=== PATIENT | female | born 1990 | race Caucasian/White ===

== ENCOUNTER → 2021-04-05 09:10 | Outpatient (BNVA) | payer BC, SELFPAY | PROVIDERS: Visit Provider Obstetrics & Gynecology | DX: Z34.01 Encounter for supervision of normal first pregnancy, first trimester (principal) | CPT/HCPCS: 80307; 84315; 85027; 86592; 86762; 86803; 86850; 86900; 87086; 87340; 87491; 87591 ==

== ENCOUNTER → 2021-05-20 09:01 | Outpatient (BNVA) | payer BC, SELFPAY | PROVIDERS: Visit Provider Obstetrics & Gynecology | DX: Z36.89 Encounter for other specified antenatal screening (principal) | CPT/HCPCS: 76805 ==

== ENCOUNTER → 2021-06-20 08:00 | Outpatient (BNVA) | payer BC, SELFPAY | PROVIDERS: Visit Provider Obstetrics & Gynecology | DX: Z34.01 Encounter for supervision of normal first pregnancy, first trimester (principal) | CPT/HCPCS: 82950; 84315 ==

== ENCOUNTER → 2021-07-29 13:13 | Outpatient (BNVA) | payer BC, SELFPAY | PROVIDERS: Visit Provider Obstetrics & Gynecology | DX: Z34.80 Encounter for supervision of other normal pregnancy, unspecified trimester (principal) | CPT/HCPCS: 84315; 85027 ==

== ENCOUNTER → 2021-09-09 13:48 | Outpatient (BNVA) | payer BC, SELFPAY | PROVIDERS: Visit Provider Obstetrics & Gynecology | DX: Z34.01 Encounter for supervision of normal first pregnancy, first trimester (principal) | CPT/HCPCS: 84315; 87081 ==

== ENCOUNTER 2021-10-05 01:50 | Inpatient (IN) | payer BC, SELFPAY ==
[2021-10-04 23:28] VITALS: BP 131/77; PULSE 103
[2021-10-04 23:32] VITALS: RESP 16
[2021-10-04 23:35] VITALS: BMI 36.7
[2021-10-05] VITALS (68 sets, daily range): BP systolic 105–167; BP diastolic 56–93; PULSE 66–113; RESP 16–18; TEMP 37.1–38.1; O2SAT 76–100
[2021-10-05] MEDS: dextrose 5%-lactated ringers 1,000 ML 999 ML IV (02:13)
[2021-10-05 02:15] LABS: Basophils % 0.3 %; Eosinophils % 0.2 %; Hemoglobin 13.4 g/dL (11.5-15.3); Lymphocytes # 2.5 10^3/uL (0.8-4.8); Lymphocytes % 18.8 %; Mean Corpuscular HGB Conc 34.4 g/dL (30.0-36.0); Mean Corpuscular Hemoglobin 29.5 pg (28.0-34.0); Mean Corpuscular Volume 85.7 fl (81-99); Mean Platelet Volume 9.7 fL (7.4-10.4); Monocytes # 0.6 10^3/uL (0.2-0.9); Monocytes % 4.8 %; Neutrophils # 9.84 10^3/uL (1.8-7.7); Neutrophils % 75.5 %; Nucleated Red Blood Cells % 0 %; Platelet Count 256 10^3/cmm (130-400); Red Blood Count 4.55 10^6/uL (4.1-5.3); Red Cell Distribution Width 13.7 % (12.1-15.1)
--- NOTE | 2021-10-05 02:27 | PM.OPHPUD ---
Labor & Delivery H&P Update Date of Procedure: October 05, 2021 Date H&P Performed: 09/30/21 H&P update information: I have reviewed H&P completed within last 30 days, I have examined patient prior to procedure and Changes to prior documentation as noted here Changes to previous documentation: The patient had cervical change to /-3. she is 39 6/7 weeks. She will be admitted for labor Admission Diagnosis:
[2021-10-05] MEDS: fentaNYL 50 mcg/mL INJ 2mL IVP ×2 (04:32→06:07)
[2021-10-05] MEDS: lactated ringers 1,000 ML 999 ML IV ×2 (07:40→08:46)
[2021-10-05] MEDS: ondansetron 2 mg/ML SDV 2 mL 4 MG IVP (08:43)
--- NOTE | 2021-10-05 08:45 | ANES.PREANE2 ---
Pre-Anesthetic Assessment Height/Weight: Height 1.57 m Weight 91.172 kg Temp Pulse Resp BP Pulse Ox 99.7 F H 111 H 18 135/77 98 10/05/21 08:38 10/05/21 09:07 10/05/21 06:07 10/05/21 09:07 10/05/21 09:05 Preop Diagnosis: IUP labor epidural Familial anesthetic complications: none Was Beta Estela taken within 24 hours: N/A Was Clonidine taken within 24 hours: N/A Social No alcohol and No tobacco Exam alert and oriented x 3 Airway Submandibular: within normal limits Cervical ROM: within normal limits Mallampati: Class II Dentition: full History/ROS No significant history except as noted Anesthetic Plan ASA status: 2 Anesthesia: Anesthesia Evaluation and Regional (specify below) (epidural) Risk of > 500 ml blood loss (7ml/kg in children): No Medications/Allergies Home Medications Medication Instructions Recorded Confirmed Last Taken Type fluoxetine 10 mg capsule (Prozac) 10 mg PO DAILY 03/22/21 10/04/21 10/04/21 08:30 History prenat.vits,amanda,[id number] 1 tab PO DAILY 03/22/21 10/04/21 10/04/21 08:30 History Allergies Allergy/AdvReac Type Severity Reaction Status Date / Time No Known Allergies Allergy Verified 10/04/21 23:34 Current Medications Generic Name Dose Route Start Last Admin Trade Name Freq PRN Reason Stop Dose Admin Fentanyl 25 - 100 mcg 10/05/21 01:49 10/05/21 06:07 Fentanyl 50 Mcg/Ml Inj 2ml IVP 50 mcg Q1H PRN Administration SEVERE PAIN Dextrose/Lactated Ringer's 1,000 mls @ 125 mls/hr 10/05/21 02:00 10/05/21 04:35 Dextrose 5%-Lactated Ringers IV 125 mls/hr .Q8H MADI Infusion Lactated Ringer's 1,000 mls @ 999 mls/hr 10/05/21 01:49 10/05/21 08:46 Lactated Ringers IV 999 mls/hr .Q1H1M PRN Administration Per L&D Rescitation Protocol Ropivacaine 200 mg in 100 mls @ 13 mls/hr 10/05/21 07:45 10/05/21 09:06 Naropin Premix EPIDURAL 13 mls/hr .Q7H42M MADI Administration Lactated Ringer's 1,000 mls @ 999 mls/hr 10/05/21 07:32 10/05/21 07:40 Lactated Ringers IV 999 mls/hr .Q1H1M PRN Administration See label comments Ondansetron HCl 4 mg 10/05/21 01:49 10/05/21 08:43 Ondansetron 2 Mg/Ml Sdv 2 Ml IVP 4 mg Q4H PRN Administration NAUSEA AND VOMITING PFSH Anesthesia Medical History Depression started prozac 10mg July 2020. Feels managed by PCP. No pertinent past medical history neghx: htn,dm,thyroid,dvt/pe PCP: Donna Tong Surgical History History of tonsillectomy and adenoidectomy (~2013) Hx of cholecystectomy (~2010) Family History Family/Other Breast cancer Maternal cousin--dx age 30's Diabetes Maternal Aunt Cervical cancer Maternal Cousin-- dx age 35-40 Grandfather Heart disease Maternal Sister Thyroid disease Father Thyroid disease Denies family history of Colon cancer Ovarian cancer Hypercholesteremia Hypertension Uterine cancer Stroke Female Reproductive History : 1 Data Anesthesia : 10/05/21 01:58 Short CBC 10/05/21 Range/Units 01:58 WBC 13.0 H (4.0-10.0) 10^3/uL Hgb 13.4 (11.5-15.3) g/dL Hct 39.0 (37.0-47.0) % MCV 85.7 (81-99) fl Plt Count 256 (130-400) 10^3/cmm Neut % (Auto) 75.5 % Neut # (Auto) 9.84 H (1.8-7.7) 10^3/uL Cardiac Studies: No Data to Display
--- NOTE | 2021-10-05 09:08 | ANES.PROC ---
Anesthesia Procedures Procedure/Date: 10/05/21 epidural Epidural: Time Out Performed: Yes Consents Signed: Procedure Consent Consent: from patient, risks and benefits reviewed and patient agrees to proceed Lumbar Level: L3-L4 Epidural position: sitting Epidural procedure: sterile prep of area, 1% lidocaine to numb the area, 18 g needle, negative for paresthesia passed, test dose given, 1.5% xylocaine 1:200k epi, placed PCEA, no systemic response, sterile dressing applied, L.U.D. no apparent complications and 0.2% Ropiavacaine @ mls/hr (13) Additional Comments: BROOKS at 7, taped at 13 at skin
[2021-10-05] MEDS: oxytocin 30 UNIT/500 ML BAG 600 UNIT IV (10:11)
--- NOTE | 2021-10-05 11:39 | PM.DELIVERY ---
Delivery Note: Date of delivery: October 05, 2021 Pre-delivery diagnoses: iup @ 39w6d, active labor Post-delivery diagnoses: same-delivered Procedure: Delivering Physician: Han Estimated blood loss (mL): 5 Findings: term male in LATRELL presentation Pre-Delivery Course: The patient was admitted from triage for active labor. she had complete cervical dilation and began pushing Delivery: The patient had complete cervical dilation and began to push. The head delivered in the LATRELL position over an intact perineum under epidural anesthesia. The nose and mouth were bulb suctioned. The shoulders and body delivered atraumatically. The baby was placed onto the mother's abdomen. The cord was clamped and cut. Cord blood was obtained. The placenta delivered spontaneously. It was inspected and found to be intact. Inspection of the perineum revealed there was no laceration and no repair was required.. Estimated blood loss 5 mL. Apgars on baby were 7 at 1 minute and 9 at 5 minutes. Weight of baby is 5 pounds 15 ounces. Mother and baby were stable post delivery. 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
[2021-10-05] MEDS: benzocaine-menthol 78 gm Canister 1 SPRAY TOPICAL (13:08)
[2021-10-05] MEDS: lanolin oint 7 gm 1 APPLIC TOPICAL (13:08)
[2021-10-05] MEDS: ibuprofen 800 mg tablet PO ×2 (16:23→23:18)
[2021-10-05 23:33] LABS: Hemoglobin 11.6 g/dL (11.5-15.3); Mean Corpuscular HGB Conc 34.1 g/dL (30.0-36.0); Mean Corpuscular Hemoglobin 29.1 pg (28.0-34.0); Mean Corpuscular Volume 85.4 fl (81-99); Mean Platelet Volume 9.7 fL (7.4-10.4); Platelet Count 217 10^3/cmm (130-400); Red Blood Count 3.98 10^6/uL (4.1-5.3); Red Cell Distribution Width 13.7 % (12.1-15.1)
[2021-10-06] VITALS (8 sets, daily range): BP systolic 124–133; BP diastolic 64–78; PULSE 82–90; RESP 16–18; TEMP 35.4–37.2; O2SAT 99
[2021-10-06] MEDS: ibuprofen 800 mg tablet PO ×2 (09:18→15:37)
[2021-10-06] MEDS: docusate sodium 100 mg Capsule PO (09:18)
[2021-10-06] MEDS: prenatal vitamin Capsule 1 CAP PO (09:18)
--- NOTE | 2021-10-06 09:48 | P.DS_ITS ---
Discharge Providers IP ATTORNEY Date of Admission: 10/05/21 01:50 Date of Discharge: 10/06/21 Attending Provider at Admission: Supriya Short MD Attending Provider at Discharge: Alex Yoo MD Primary IP ATTORNEY: Alex Yoo MD Reason for Visit Reason for Visit: CONTRACTIONS Brief History: Ms. Tripathi is a 30 year old G1 established patient with LMP of 12/30/2020, CASE 10/06/2021 with an estimated gestational age at 39 weeks +6 days. Hospital Course Hospital Course 30Y/o female G1 P 0 with IUP at 39+6 weeks came to L&D in active labor. She had an uneventful care. She had an adequate progression of labor to a spontaneous vaginal delivery of viable term male infant 7/9 with weight 2685 gms. Her recovery was uneventful. Information Peripartum Data: Infant Delivery Method: Vaginal Physical Exam Narrative: GA; alert and oriented x 3 HEENT: normal Breasts: engorged Nipples - skin intact Lungs; clear to auscultation Heart: regular rhythm, no murmurs. Abd: Appropriately tender. BS+. Uterine fundus below umbilicus. No Fundal Tenderness. Perineum: normal lochia. Extremities: no edema, no cyanosis, no tenderness. Urinary Catheter Management: Bernal: Cath Placed During This Visit: yes, but has since been removed by the nurse Reason for Continuing Indwelling Catheter: Decision to DC Catheter Urinary Catheter Date of Insertion: 10/05/21 Urinary Catheter Time of Insertion: 09:10 Date Urinary Catheter Removed: 10/05/21 Time Urinary Catheter Discontinued: 09:50 History History History 1 Term Miscarriages/Ectopic Living Children Discharge Data Studies Completed and Pending Laboratory Results WBC 15.0 10^3/uL (4.0-10.0) H 10/05/21 23:23 RBC 3.98 10^6/uL (4.1-5.3) L 10/05/21 23:23 Hgb 11.6 g/dL (11.5-15.3) 10/05/21 23:23 Hct 34.0 % (37.0-47.0) L 10/05/21 23:23 MCV 85.4 fl (81-99) 10/05/21 23:23 MCH 29.1 pg (28.0-34.0) 10/05/21 23:23 MCHC 34.1 g/dL (30.0-36.0) 10/05/21 23:23 RDW 13.7 % (12.1-15.1) 10/05/21 23:23 Plt Count 217 10^3/cmm (130-400) 10/05/21 23:23 MPV 9.7 fL (7.4-10.4) 10/05/21 23:23 Neut % (Auto) 75.5 % 10/05/21 01:58 Lymph % (Auto) 18.8 % 10/05/21 01:58 [place] % (Auto) 4.8 % 10/05/21 01:58 Eos % (Auto) 0.2 % 10/05/21 01:58 Baso % (Auto) 0.3 % 10/05/21 01:58 Neut # (Auto) 9.84 10^3/uL (1.8-7.7) H 10/05/21 01:58 Lymph # (Auto) 2.5 10^3/uL (0.8-4.8) 10/05/21 01:58 [place] # (Auto) 0.6 10^3/uL (0.2-0.9) 10/05/21 01:58 Eos # (Auto) 0.0 10^3/uL (0.0-0.8) 10/05/21 01:58 Baso # (Auto) 0.0 10^3/uL (0.0-0.1) 10/05/21 01:58 Nucleated RBC % (auto) 0 % 10/05/21 01:58 Nucleated RBCs # 0.0 /100WBC 10/05/21 01:58 Vitals Last Vital Signs Temp 95.7 F L 10/06/21 09:21 Pulse 88 10/06/21 09:20 Resp 16 10/06/21 07:23 BP 133/78 10/06/21 09:20 Pulse Ox 92 10/05/21 09:41 Discharge Plan Discharge Patient Disposition: Home Condition: Stable Prescriptions: New acetaminophen 325 mg capsule 325 mg PO Q4H PRN (Reason: fever or pain) Qty: 60 0RF ibuprofen 800 mg tablet 800 mg PO TID PRN (Reason: pain) Qty: 60 0RF Continued fluoxetine [Prozac] 10 mg capsule 10 mg PO DAILY 0RF prenat.vits,amanda,[id number] Tablet 1 tab PO DAILY 0RF Discharge Orders: Discharge Order (Routine); Ordered 10/06/21 Ordered By: Alex Yoo Referrals: Alex Yoo MD [Physician] - 6 Weeks Discharge Diet: Usual diet Discharge Activity: Limit activity as instructed Patient Instructions: Depression (DC), Bleeding (DC), Preeclampsia and Eclampsia After Delivery (GEN), OB Discharge Report, OB Food/Drug Interaction Guide, OB Care at Home, Opioid Safety, OB Home Care, OB Vaginal Deliveries - [facility], Abnormal Bleeding Activity Restrictions/Additional Instructions: 1. Please call [facility] on next working day to make your post appointment in 6 weeks. 2. Please stay home until you come back to the clinic on first post-operative check up. 3. Please follow instructions on your medications CAREFULLY. 4. If you have abdominal incision, do not cover it unless dressing is necessary because of drainage. OK to shower, but avoid bath. Leave steri-strips until they fall off. If they are still on one week after surgery, you may remove them. 5. If you had vaginal surgery or vaginal repair, Dr. Yoo may instruct you to take SITZ bath. 6. Yellow, blood tinged odorous vaginal discharge is usually normal after hysterectomy or vaginal surgeries. 7. No sexual intercourse, tampons, or douches until you are completely released from the post-operative care. 8. Avoid constipation by eating right and maybe using some Metamucil or Milk of Magnesia. 9. All prescription refills are given during the working hours. Please do no wait till it runs out. Call the clinic at [phone] before your medication runs out. The clinic will get in touch with your doctor to prescribe medications if necessary. 10. Please remain within 40 mile radius from our hospital because emergencies do happen now and then during the post-operative period. 11. If you have stairs at home, take one step at a time slowly and minimize the number of trips. It helps to stay in one floor for the next few days. No lifting except what you can lift by one hand until you are released from the post-operative care. 12. Driving is discouraged until you are well healed. It may be 3-4 weeks before you feel strong enough to drive. You should be able to turn and look through the rear window without pain and you should be able to push the brake pedal very hard without pain before you drive. No fast rules, but SAFETY should be your primary concern. DO NOT drive if you are on sedating medications such as narcotics. 13. Call the clinic (during working hours) to make urgent appointment or go to the Emergency room, if any of the following occurs: i. Vaginal bleeding becomes heavy, more than a period. ii. Incision becomes red and sore, or drains pus. iii. Your temperature is over 100.4 or you have chill. iv. IV site becomes red and swollen (a little ``knot?? is usually OK) v. Persistent nausea and vomiting vi. Persistent constipation or diarrhea vii. Rash or allergic reaction to medications. Discharge Attestations IP ATTORNEY Time Spent in Discharge Care*: greater than 30 min Coding Level of Care Code Acute Supervisor [employer]ines for Lia Crowder
--- NOTE | 2021-10-06 14:53 | ANE.PACU2 ---
Inpatient post-anesthesia follow up: Airway intact: Yes Vital signs: Temperature 95.7 F Pulse Rate 88 Respiratory Rate 18 Blood Pressure 133/78 Pulse Oximetry 92 Oxygen Delivery Me thod Room Air Oxygen Flow Rate Fraction of Inspir ed Oxygen Hydration adequate: Yes Nausea and vomiting: No Pain level: 1 Mental status: Baseline
== END 2021-10-06 15:30 | disposition home or self-care (01) | DRG 807 ==
LOC: OPOB 01:50 → OBGYN 01:50
PROVIDERS: Admitting Provider Obstetrics & Gynecology; Visit Provider Obstetrics & Gynecology
DX: O99.344 Other mental disorders complicating childbirth (principal); Z37.0 Single live birth; Z3A.39 39 weeks gestation of pregnancy; F32.A Depression, unspecified
CPT/HCPCS: 36415; 51702; 59025; 59409; 85025; 85027; 99211; J2405; J2795; J3010

== ENCOUNTER → 2021-11-15 10:45 | Outpatient (BNVA) | payer BC, SELFPAY | PROVIDERS: Visit Provider Obstetrics & Gynecology | DX: Z30.011 Encounter for initial prescription of contraceptive pills (principal) | CPT/HCPCS: 81025 ==